=== PATIENT | male | born 1955 | race Caucasian/White ===

== ENCOUNTER 2023-10-07 07:45 | Day surgery (SDC) | payer OTHER, SELFPAY ==
[2023-09-23 12:40] VITALS: BMI 40.3
[2023-09-23 13:02] LABS: % Basophils 0.9 % (0-2); % Eosinophils 2.5 % (0-6); % Immature Granulocytes 0.2 % (0-0.5); % Lymphocytes 20.5 % (20.5-51.1); % Neutrophils 63.9 % (42.2-75.2); Absolute Eosinophils 0.1 10^3/uL (0-0.7); Absolute Lymphocytes 0.9 10^3/uL (1.2-3.4); Absolute Monocytes 0.5 10^3/uL (0.1-0.6); Absolute Neutrophils 2.8 10^3/uL (1.4-6.5); Hematocrit 43.3 % (39.0-52.0); Hemoglobin 15.3 g/dL (13.0-18.0); Mean Corp Hgb Conc. 35.3 g/dL (33.0-37.0); Mean Corpuscular Hgb 31.4 pg (27.0-31.0); Mean Corpuscular Volume 88.9 fL (80.0-94.0); Mean Platelet Volume 9.2 fL (7.4-10.4); Nucleated Red Blood Cells % 0 % (-); Platelet Count 242 10^3/uL (130-400); Red Blood Cell Count 4.87 10^6/uL (4.70-6.10); Red Cell Dist. Width 12.1 % (11.5-14.5); White Blood Cell Count 4.3 10^3/uL (4.8-10.8)
[2023-09-23 13:13] LABS: INR 1.14; PT 14.8 Sec (11.4-14.6)
[2023-09-23 13:20] LABS: ALT (SGPT) 28 U/L (0-50); AST (SGOT) 32 U/L (17-59); Albumin 4.1 g/dl (3.5-5.0); Alkaline Phosphatase 62 U/L (38-126); Blood Urea Nitrogen 21 mg/dl (9-20); Carbon Dioxide 28 mmol/L (22-30); Chloride 104 mmol/L (98-107); Estimated Creatinine Clearance 95 ml/min; Glucose 93 mg/dl (70-99); Magnesium 2.3 mg/dl (1.6-2.3); Potassium 3.8 mmol/L (3.5-5.1); Sodium 136 mmol/L (135-145); Total Bilirubin 0.9 mg/dl (0.2-1.3); Total Protein 6.9 g/dl (6.3-8.2); eGFR > 60.00
[2023-10-07] VITALS (14 sets, daily range): BP systolic 103–131; BP diastolic 56–73; BMI 40.0
[2023-10-07 09:58] LABS: ACT-LR - POC 256 Seconds (116-155)
[2023-10-07 10:11] LABS: ACT-LR - POC 277 Seconds (116-155)
[2023-10-07 10:32] LABS: ACT-LR - POC 319 Seconds (116-155)
--- NOTE | 2023-10-07 11:49 | ITS.CL.ABL ---
Certified Pharmacy Technician - Ablation
Ablation
Procedure Report:
ELECTROPHYSIOLOGY ABLATION STUDY
DATE:: October 07, 2023 REFERRING: Dr. Jose Vega
INDICATION: Persistent supraventricular tachycardia in the form of atrial fibrillation. As above
HISTORY: See H and P. History of persistent A-fib
ANTIARRHYTHMIC DRUG: Metoprolol
PRE-PROCEDURE KISHA: No atrial thrombus
PRESENTING RHYTHM: A-fib
'TIME-OUT': called and confirmed.
SEDATION/ANESTHESIA: provided via the anesthesia department using general anesthesia (LMA).
INTRAVENOUS/ARTERIAL ACCESS:
Right femoral venous - 8Fr
Left femoral venous - 8 Fr, 6 Fr
Patient's venous access sites were successfully closed with Vascade venous closure system
Ultrasound guidance for bilateral femoral vein access was utilized by me to obtain access with demonstration of normal anatomy
CHADS-VASC Score:
HAS-Bled Score
PROCEDURE:
1. A decapolar CS catheter was placed within the CS for mapping and pacing. This was also used as the reference catheter for the 3-D map.
2. The intracardiac ultrasound catheter was positioned in the RA to identify the FO for targeting of transseptal puncture, assist in identification of the pulmonary vein ostia, monitoring pre and post ablation pulmonary vein flow velocities,
monitoring for 'bubble' formation during RF application as a sign of thermal injury, and to monitor for pericardial effusion during mapping and ablation procedure. Left atrial size, LV ejection fraction, and pulmonary vein flows were monitored
pre and post ablation procedure. The other valves were inspected and found to be free of significant regurgitation or stenosis.
3. Half of the calculated heparin bolus was administered prior to the first transeptal puncture. Transseptal puncture was performed to diagnose RA and LA pressure so that safety of LA mapping and ablation could be further assessed, and to access
the left atrium and pulmonary veins for mapping and ablation. This entailed advancing an 8 Fr SL-1 sheath with dilator into the superior vena cava and withdrawing both (monitoring intracardiac ultrasound, fluoroscopy and tip pressure) with the tip
oriented toward the atrial septum. The fossa ovalis was engaged (indicated by sudden displacement of the sheath tip as well as tenting of the fossa seen on intracardiac ultrasound). Left atrial access required a pass with the Brockenbrough needle
extended. Left atrial catheter position was confirmed by pressure monitoring (RA mean pressure 8 mm Hg and LA mean presure 12 mm Hg), LA saturation (99%), as well as fluoroscopy. The sheath was advanced over the dilator and positioned in the left
atrium. This procedure was repeated for the Agilis sheath. The remainder of the calculated heparin bolus was administered and heparin was
infused to maintain ACT at 300 -350 seconds throughout the case.
4. RA pacing was performed via the proximal decapolar poles and LA pacing was performed via the distal decapolr poles.
5. A quadrapolar catheter was first positioned at the His position for His Bundle recording which was tagged via the 3-D Navex sytem, and then passed to the RVA for RV pacing and recording.
6. The ablation catheter was positioned through one of the transeptal seaths and a 20 pole ring mapping catheter was positioned through the second seath into the LA and then the ostia of the LIPV, LSPV, RSPV and the RIPV.
7. Next, a 3-D map was created using Navex. A 3-D reconstructed CT image was compared to the 3-D Navex map to assist in anatomic interpretation, mapping and ablation. The CT image and the NavX image were fused.
8. Pulmonary vein and extrapulmonary vein lesions were given during procedure. Patient left common ostium which was addressed with sequential segmental lesions for 3 minutes on the superior aspect and 4 minutes on the inferior aspect isolating the
vein durably. Distal occlusion was performed on the kylee at 3 minutes. For the right veins 1 distinct 3-minute freezing application of the right superior pulmonary vein and 1 distinct 3 and 1 distinct 2-minute freezing application to the right
inferior pulmonary vein. 1 extrapulmonary lesion was given to the roof outside the right superior pulmonary vein on the posterior aspect for 2 minutes. Entrance block was confirmed in all 4 pulmonary veins the patient was converted to sinus rhythm
with entrance and exit block confirmed in all 4 pulmonary veins. No cooling of esophagus or loss of phrenic nerve capture was seen.
EP study demonstrated no other nonpulmonary triggers for atrial fibrillation or supraventricular arrhythmia noted.
9. Normal sinus node and AV skyler function noted.
TOTAL FLOURO TIME: 13.5 minutes 37 mGy
TOTAL RF DURATION: 0 minutes
REVERSAL OF HEPARIN: 35 mg of protamine, slow IV administration
COMPLICATIONS:
None
Intracardiac US shows no pericardial effusion post ablation.
SUMMARY:
Complex left atrial mapping and ablation.
Isolation of all 4 pulmonary veins and extrapulmonary vein lesion to the roof outside the right superior pulmonary vein noted.
RECOMMENDATIONS:
1. Admit to monitored bed.
2. Resume anticoagulation
3. Out of bed 2 hours
4. Consider same-day discharge
Copy to: Dr. Ilana Forman at [facility]
--- NOTE | 2023-10-07 14:08 | PTCARENOTE ---
approx 1330 dressing changed at rt femoral vein site sl ooze occurred . pressure held for 10 min . ooze stopped ,new dressing applied . sachi alcala np aware. will keep pt in bed for 30 min and attempt to walk again and void.
--- NOTE | 2023-10-07 15:15 | PTCARENOTE ---
After multiple times of walking pt around unit, groin remains stable and pt able to void. Radha Landeros senior sales associate aware and pt discharged to home.
--- NOTE | 2023-10-07 16:16 | W.PN.UPDATE ---
Update Note
Progress Note Update
68 yo WM s/p PVI (same day). He feels great, no cp, sob, shawn diet, amb w/o dizziness, he had some inital difficulty urinating but then continued to take PO and ambulate and voiding a large amount. EKG SR LBBB, b/l groins closed with VASCADE c/d/i R
groin initially with slight ooze but soft, dry and intact at time of d/c. He will continue OAC Eliquis at 5pm at home. Activity restrictions reviewed. He will f/u Dr. Forman 4-6 weeks. He is for d/c home after 4pm.
SUMMARY:�
Complex left atrial mapping and ablation.
Isolation of all 4 pulmonary veins and extrapulmonary vein lesion to the roof outside the right superior pulmonary vein noted.
RECOMMENDATIONS:
1. Admit to monitored bed.
2. Resume anticoagulation
3.� Out of bed 2 hours
4.� Consider same-day discharge
Copy to: Dr. Ilana Forman at [facility] cardiology
--- NOTE | 2023-10-11 15:03 | PTCARENOTE ---
Pt had a PVI done 10/07/2023. Call back place today (message left previously for pt and pt left message on slab stripper voicemail on Wednesday). Pt informed RN he forgot to take his eliquis the morning after the procedure. Pt states he took it the evening
of the PVI but forgot the next morning. Pt states he only missed one dose. Pt also c/o groin pain. Pt denies signs/symptoms of hematoma and/or infection. Pt also did not schedule his follow up cardiology appointment. Pt instructed to contact
datapower developer office to schedule follow up appointment within 4-6 weeks. Pt also instructed to inform datapower developer about discomfort at pt's groin site. Pt verbalized understanding of instructions given. Questions encouraged and answered. Suzette Johnson
GOVERNMENT OPERATIONS CONSULTANT made aware of missed eliquis dose and discomfort at groin site.
== END 2023-10-07 15:30 | disposition home or self-care (01) ==
LOC: CATH 07:45
PROVIDERS: ATTENDING PHYSICIAN Internal Medicine Cardiovascular Disease; FAMILY PHYSICIAN Family Medicine; OTHER PHYSICIAN Internal Medicine Cardiovascular Disease
DX: I48.19 Other persistent atrial fibrillation (principal); I48.92 Unspecified atrial flutter; I10 Essential (primary) hypertension; E78.5 Hyperlipidemia, unspecified; I25.10 Atherosclerotic heart disease of native coronary artery without angina pectoris; G47.33 Obstructive sleep apnea (adult) (pediatric); E66.9 Obesity, unspecified; Z68.41 Body mass index [BMI] 40.0-44.9, adult; Z79.01 Long term (current) use of anticoagulants; Z79.02 Long term (current) use of antithrombotics/antiplatelets
CPT/HCPCS: C1766; C1894; C1730; C1893; C1733; C1892; C1759; 36415; 75572; 76937; 80053; 83735; 85025; 85347; 85610; 86850; 86900; 86901; 93005; 93656; C1760; Q9967